=== PATIENT | female | born 1970 | race Caucasian/White ===

== ENCOUNTER 2018-06-17 15:56 | Emergency (ER) | payer OTHER ==
--- NOTE | 2018-06-17 17:11 | EDPHY ---
H & P Time Seen by Provider: 06/17/18 17:10 HPI/ROS: Chief complaint. Abdominal pain after trauma HPI. 48-year-old female presents emergency department with upper abdominal pain for 1 week. About 1 week ago she was walking tripped and fell apparently into a hole and struck the upper abdomen on the edge of the whole. She skinned her elbows and thought she sprained her thumb. She has seen an orthopedist about her thumb. She seen a scientific glass blower who recommended CT however it has been held up in insurance. The patient feels like she has distended abdomen and has been nauseated and having decreased appetite. She did not hit her head or lose consciousness. No neck or back pain. No chest pain or trouble breathing. Patient continues to have left upper quadrant abdominal pain ROS 10 systems were reviewed and negative with the exception of the elements mentioned in the history of present illness Past Medical/Surgical History: Orthopedic surgeries, tubal ligation Social History: , nonsmoker, no alcohol Smoking Status: Former smoker Physical Exam: General Appearance: A well-developed female mild distress vital signs stable Eyes: Pupils equal and round no pallor or injection. ENT, Mouth: Mucous membranes are moist. Respiratory: There are no retractions, lungs are clear to auscultation. Cardiovascular: Regular rate and rhythm. Gastrointestinal: Abdomen is soft with left upper quadrant tenderness. Normal bowel sounds. No masses. No obvious surface trauma. Neurological: Awake and alert, sensory and motor exams grossly normal. Skin: Warm and dry, no rashes. Musculoskeletal: Neck is supple nontender. No T, L, S spine tenderness Extremities symmetrical, full range of motion. Psychiatric: Patient is oriented X 3, there is no agitation. Constitutional: Initial Vital Signs Temperature (C) 36.9 C 06/17/18 16:02 Heart Rate 83 06/17/18 16:02 Respiratory Rate 16 06/17/18 16:02 Blood Pressure 142/96 H 06/17/18 16:02 O2 Sat (%) 98 06/17/18 16:02 O2 Delivery Mode Room Air Allergies/Adverse Reactions: No Known Allergies Allergy (Verified 06/17/18 16:02) Home Medications: Medication Instructions Recorded NK [No Known Home Meds] 03/17/16 Medical Decision Making - Diagnostics Imaging Results: Abdomen pelvis CT with IV and oral contrast is normal. Reviewed by me and discussed Dr. Courtney Procedures: IV normal saline Oral contrast given for upper abdominal trauma prior to CT ED Course/Re-evaluation: Re-evaluation at 7:50 p.m.. Patient and I discussed imaging lab results. We discussed treatment plan including criteria for return importance of follow-up further evaluation. She expresses understanding and agreement Differential Diagnosis: I considered rib fractures, hollow viscus trauma intestinal contusion, organ damage. - Data Points Laboratory Results: Laboratory Results 06/17/18 17:42 06/17/18 17:42 06/17/18 06/17/18 17:42 17:42 WBC 7.65 10^3/uL 10^3/uL (3.80-9.50) RBC 4.42 10^6/uL 10^6/uL (4.18-5.33) Hgb 13.6 g/dL g/dL (12.6-16.3) Hct 38.2 % % (38.0-47.0) MCV 86.4 fL fL (81.5-99.8) MCH 30.8 pg pg (27.9-34.1) MCHC 35.6 g/dL g/dL (32.4-36.7) RDW 12.8 % % (11.5-15.2) Plt Count 216 10^3/uL 10^3/uL (150-400) MPV 10.4 fL fL (8.7-11.7) Neut % (Auto) 64.9 % % (39.3-74.2) Lymph % (Auto) 26.7 % % (15.0-45.0) [place] % (Auto) 6.3 % % (4.5-13.0) Eos % (Auto) 1.3 % % (0.6-7.6) Baso % (Auto) 0.5 % % (0.3-1.7) Nucleat RBC Rel Count 0.0 % % (0.0-0.2) Absolute Neuts (auto) 4.97 10^3/uL 10^3/uL (1.70-6.50) Absolute Lymphs (auto) 2.04 10^3/uL 10^3/uL (1.00-3.00) Absolute Monos (auto) 0.48 10^3/uL 10^3/uL (0.30-0.80) Absolute Eos (auto) 0.10 10^3/uL 10^3/uL (0.03-0.40) Absolute Basos (auto) 0.04 10^3/uL 10^3/uL (0.02-0.10) Absolute Nucleated RBC 0.00 10^3/uL 10^3/uL (0-0.01) Immature Gran % 0.3 % % (0.0-1.1) Immature Gran # 0.02 10^3/uL 10^3/uL (0.00-0.10) Sodium 138 mEq/L mEq/L (135-145) Potassium 3.8 mEq/L mEq/L (3.3-5.0) Chloride 104 mEq/L mEq/L (97-110) Carbon Dioxide 24 mEq/l mEq/l (22-31) Anion Gap 10 mEq/L mEq/L (8-16) BUN 11 mg/dL mg/dL (7-23) Creatinine 0.6 mg/dL mg/dL (0.6-1.0) Estimated GFR > 60 Glucose 95 mg/dL mg/dL (70-100) Calcium 9.1 mg/dL mg/dL (8.5-10.4) Lipase 117 IU/L IU/L (23-300) Medications Given: Discontinued Medications Diatrizoate Meglum/Diatrizoate Sod (Gastroview 66-10 Soln) 30 ml PO EDNOW ONE Stop: 06/17/18 17:20 Last Admin: 06/17/18 17:48 Dose: 30 ml Departure - Departure Disposition: Home, Routine, Self-Care Clinical Impression: Abdominal pain Qualifiers: Abdominal location: left upper quadrant Qualified Code(s): R10.12 - Left upper quadrant pain Condition: Good Instructions: Acute Abdominal Pain (ED) Additional Instructions: Activity as tolerated. Return for worsening symptoms. Follow up with your regular physician in 2-3 days if not improving Referrals: NONE *PRIMARY CARE P,. [Primary Care Provider] - As per Instructions
[2018-06-17] MEDS ORDERED: GASTROVIEW 30 ML UNIT PO ONE (17:19)
[2018-06-17 17:54] LABS: PLATELET COUNT 216 10^3/uL (150-400)
[2018-06-17] MEDS ORDERED: IOPAMIDOL (ISOVUE-300) 100 ML BTL ONE (18:59)
[2018-06-17 19:59] VITALS: BP 170/92
== END 2018-06-17 19:59 | disposition home or self-care (01) ==
DX: R10.12 Left upper quadrant pain (principal)
CPT/HCPCS: Q9967